=== PATIENT | male | born 1980 | race Caucasian/White ===

== ENCOUNTER 2022-12-25 01:57 | Emergency (ER) | payer OTHER ==
--- NOTE | 2022-12-25 02:35 | ED ---
Psych HPI - General Stated Complaint: Legal blood draw Time Seen by Provider: 12/25/22 02:35 Source: police, RN notes reviewed, old records reviewed Limitations: no limitations - History of Present Illness Initial Comments: This is a 42-year-old male to the emergency department for evaluation. Patient is brought in by the police for a warrant or blood draw. Patient is making statements of both suicidal or homicidal thoughts MD Complaint: suicidal ideation -: unknown Associated Psychiatric Symptoms: depression, suicidal ideation History of same: Yes Quality: constant Improves With: none Worsens With: none Context: recent alcohol abuse, not taking psychiatric medications, significant life stressor Associated Symptoms: denies other symptoms Treatments Prior to Arrival: placed on mental health hold Review of Systems ROS Statement: Those systems with pertinent positive or pertinent negative responses have been documented in the HPI. ROS Other: All systems not noted in ROS Statement are negative. General Exam General appearance: alert, in no apparent distress, appears intoxicated, anxious Head exam: Present: atraumatic, normocephalic, normal inspection Eye exam: Present: normal appearance, PERRL, EOMI. Absent: scleral icterus, conjunctival injection, periorbital swelling ENT exam: Present: normal exam, mucous membranes moist Neck exam: Present: normal inspection. Absent: tenderness, meningismus, lymphadenopathy Respiratory exam: Present: normal lung sounds bilaterally. Absent: respiratory distress, wheezes, rales, rhonchi, stridor Cardiovascular Exam: Present: normal rhythm, tachycardia, normal heart sounds. Absent: systolic murmur, diastolic murmur, rubs, gallop, clicks GI/Abdominal exam: Present: soft, normal bowel sounds. Absent: distended, tenderness, guarding, rebound, rigid Extremities exam: Present: normal inspection, full ROM, normal capillary refill. Absent: tenderness, pedal edema, joint swelling, calf tenderness Back exam: Present: normal inspection Neurological exam: Present: alert, oriented X3, CN II-XII intact Psychiatric exam: Present: normal affect, normal mood Skin exam: Present: warm, dry, intact, normal color. Absent: rash Course Vital Signs 12/25/22 12/25/22 12/25/22 02:55 06:00 07:50 Temperature 99.1 F 98.9 F 97.6 F Pulse Rate 118 H 98 89 Respiratory 16 18 18 Rate Blood Pressure 133/88 133/82 O2 Sat by Pulse 97 97 95 Oximetry - Reevaluation(s) Reevaluation #1: 12/25/22 06:27 Medical record is reviewed Reevaluation #2: 12/25/22 06:27 Patient medically clear for psychiatry Medical Decision Making - Medical Decision Making 43 male to the emergency room. Patient presents today for evaluation of psychiatric illness, patient is improved here in the emergency department feels well seen in however psychiatry and can be discharged home Disposition Clinical Impression: Depression, Grief reaction Disposition: HOME SELF-CARE Condition: Fair Instructions (If sedation given, give patient instructions): Depression (ED) Is patient prescribed a controlled substance at d/c from ED?: No Referrals: Nonstaff,Physician [Primary Care Provider] - 1-2 days
[2022-12-25 06:09] VITALS: RESP 18
[2022-12-25 07:54] VITALS: BP 133/82; PULSE 89; TEMP 97.6
== END 2022-12-25 07:54 | disposition home or self-care (01) ==
LOC: EC 01:57
DX: F43.21 Adjustment disorder with depressed mood (principal)
CPT/HCPCS: 82075; 99284